=== PATIENT | female | born 1955 | race Two or more races ===

== ENCOUNTER 2018-08-13 10:12 | Day surgery (SDC) | payer OTHER ==
[2018-08-10 13:24] VITALS: BMI 38.7
[~2018-08-13 10:12] MED LIST: ACETAMINOPHEN 325 MG TABLET (FP) PO PRN; CEFAZOLIN 1 GM/D5W 1 GM/50 ML BAG IVPB ONE
[2018-08-13] MEDS ORDERED: oxyCODONE HCL 5 MG TABLET PO PRN ×2 (11:12)
[2018-08-13] MEDS ORDERED: ONDANSETRON 4 MG/2 ML VIAL IVPUSH PRN (11:12)
[2018-08-13] MEDS ORDERED: DEXAMETHASONE SOD PHOSPHATE 4 MG/1 ML VIAL ONE (11:13)
[2018-08-13] MEDS ORDERED: BUPIVACAINE HCL 0.25% 125 MG/50 ML VIAL ONE (11:13)
[2018-08-13] MEDS ORDERED: LIDOCAINE HCL 2% (20ML MULTI-DOSE VIAL) NR ONE (11:13)
[2018-08-13] MEDS ORDERED: LACTATED RINGERS SOLUTION 1,000 ML IV SCH (11:15)
[2018-08-13] MEDS ORDERED: MIDAZOLAM HCL 2 MG/2 ML SINGLE DOSE VIAL ONE ×2 (11:21→11:43)
[2018-08-13] MEDS ORDERED: PROPOFOL 20 ML ONE ×5 (11:22→12:35)
[2018-08-13] MEDS ORDERED: SUCCINYLCHOLINE CHLORIDE 200 MG/10 ML VIAL ONE (11:22)
[2018-08-13] MEDS ORDERED: LIDOCAINE HCL/PF 2% SDV 5ML VIAL ONE (11:23)
[2018-08-13] MEDS ORDERED: ceFAZolin SODIUM 1 GM VIAL ONE (11:33)
[2018-08-13] MEDS ORDERED: LIDOCAINE HCL 2% (50ML VIAL) NR ONE (11:34)
[2018-08-13] MEDS ORDERED: KETOROLAC TROMETHAMINE 30 MG/1 ML VIAL ONE (11:45)
[2018-08-13] MEDS ORDERED: BUPIVACAINE HCL/PF 0.25% (2.5MG/ML) 10 ML VIAL IJ ONE (12:37)
[2018-08-13] MEDS ORDERED: DEXAMETHASONE SOD PHOSPHATE 4 MG/1 ML VIAL IVPUSH ONE (12:37)
[2018-08-13 13:15] VITALS: TEMP 97.9
[2018-08-13 13:45] VITALS: BP 133/80; PULSE 75
--- NOTE | 2018-08-14 08:46 | OP ---
DATE OF OPERATION: 08/13/2018 PREOPERATIVE DIAGNOSIS: Hallux abducto valgus, right foot. POSTOPERATIVE DIAGNOSIS: Hallux abducto valgus, right foot. PROCEDURE: Silver bunionectomy, right foot, with medial capsulorraphy ANESTHESIA: Local with IV sedation. SURGEON: Roberto Richardson DPM INTER COM SERVICER: NONE HEMOSTASIS: Pneumatic ankle tourniquet, right ankle. DESCRIPTION OF PROCEDURE: The patient was brought to the operating room, placed on the operating table in the supine position. Pneumatic ankle tourniquet was placed on the patients right ankle. Following IV sedation, local anesthesia was obtained, utilized 13 mL of 2% Lidocaine plain. Foot was then scrubbed, prepped and draped in the usual aseptic fashion. Esmarch bandage was then utilized to exsanguinate the patients right foot, and a tourniquet was inflated. Attention was directed to the dorso- medial aspect of the 1st metatarsal head on the right foot, where a 2.5 cm linear longitudinal incision was placed. The incision was just medial to the extensor hallucis longus tendon. Incision was deepened through subcutaneous tissues using sharp and blunt dissection. Care was taken to identify and retract all vital neurovascular structures. An "L" shaped capsular incision was made, the base of the "L" being medial, at the the 1st MPJ line. The capsule was sharply dissected from the underlying bone, and the medial collateral ligament was transected. Now, attention was directed to medial aspect of the 1st metatarsal head where a medial prominence was identified and resected using sagittal saw. All dorsal, medial, and lateral prominences of metatarsal head were resected using a rongeur and smoothed with a rasp. At this time, attention was directed to the lateral aspect of the base of the proximal phalanx over the 1st digit of the right foot through the initial incision, and the adductor conjoint tendon attached to the base of the lateral proximal phalanx was transected for a lateral release. A more rectus position of the Right hallux was noticed. The incision site was copiously flushed with sterile saline. Capsulorrhaphy was performed, and capsule closed with 2-0 Vicryl, subcutaneous tissue with 4-0 Vicryl, and skin with 4-0 Prolene. Surgical site was dressed with Betadine-soaked Adaptic, 4x4 gauze, Van & Coban overwrap. Patient tolerated the procedure well, and upon deflation of the ankle tourniquet, immediate hyperemia was returned to all digits of the right foot. Capillary refill time was less than 3 seconds. Patient tolerated the procedure well and was transferred to the recovery room with all vital signs stable and neurovascular status intact to the right foot. ROBERTO RICHARDSON DPM [id number] MTDDianne
--- NOTE | 2018-08-15 23:13 | OP ---
DATE OF OPERATION: 08/13/2018 PREOPERATIVE DIAGNOSIS: Hallux abductovalgus deformity with exostosis, right foot. POSTOPERATIVE DIAGNOSIS: Hallux abductovalgus deformity with exostosis, right foot. PROCEDURE: Silver bunionectomy with medial capsulorrhaphy 1st MPJ right foot. ANESTHESIA: Local with MAC. SURGEON: Roberto Richardson DPM MANAGER ENGAGEMENT: None. HEMOSTASIS: Obtained using pneumatic ankle tourniquet, right ankle, at 250 mmHg. ESTIMATED BLOOD LOSS: Less than 0.05 mL total. DESCRIPTION OF PROCEDURE: With the patient's vital signs noted to be stable, she was brought to the operating room and placed on the OR table in the supine position. After local anesthesia was administered and obtained, an orthopedic sterile prepping of the right foot was performed. Now, the well-padded tourniquet at the right ankle was inflated to 250 mmHg. At this juncture, a 2.5-cm dorsal linear incision was made centered just proximal to the 1st MPJ of the right foot, the incision being just medial to the extensor hallucis longus tendon. The incision was carefully deepened and via sharp and blunt dissection, the skin and subcutaneous tissues were reflected away from the deeper capsular structures. At this point, an L-shaped capsular incision was made, the base of the L being medial at the 1st MPJ joint line. Now, via sharp dissection, the capsular and periosteal tissues were dissected away from the underlying bone. Now, the medial collateral ligament of the 1st MPJ was transected. At this point, the medial eminence of the 1st metatarsal head was resected using a sagittal saw. Additional fragments were removed with the assistance of a bone rongeur and small osteotome and mallet. Now an adductor release was performed. A medial capsulorrhaphy was performed. The area was flushed using copious amounts of sterile saline. Now the capsular tissues were closed using simple sutures of 2-0 Vicryl. The subcutaneous tissues were closed using simple interrupted sutures of 4-0 Vicryl. The skin was closed using a subcuticular stitch of 4-0 Prolene. Postoperative injectable consisting of 1 mL of Marcaine 0.25% plain and 1 mL of dexamethasone phosphate was placed. After postoperative compressive dressings were applied, the tourniquet was deflated and normal capillary filling time was noted instantaneously to all digits of the right foot. Wound expectancy is clean. Prognosis is good. ROBERTO RICHARDSON DPM [id number] MTDD
--- NOTE | 2018-08-17 17:11 | PATH ---
Surgical Pathology Report Patient Name: SIMON DAUGHERTY [facility]. Rec. #: [id number] /Age/Gender: 1955 (Age: 63) / F Account: [id number] Location: [facility] Taken: 08/13/2018 Received: 08/13/2018 Reported: 08/17/2018 Physicians: Michele Lozada Specimen(s) Received EXOSTECTOMY, RIGHT GREAT TOE Clinical History Bunion right foot Final Diagnosis RIGHT GREAT TOE, EXOSTECTOMY: FRAGMENTS OF FIBROCONNECTIVE TISSUE, CARTILAGINOUS TISSUE, AND BONE WITH FATTY MARROW SHOWING FOCAL DEGENERATIVE CHANGE. Electronically Signed Kierra Romero M.D. Gross Description Received in formalin labeled "exostectomy right great toe," is a 2.5 x 1.7 x 0.2 cm aggregate of multiple encarnacion-yellow, irregular portions of bone and soft tissue. The largest portion is sectioned and the specimen is entirely submitted in one cassette, following decalcification. 08/16/2018 [facility]08/16/2018
== END 2018-08-13 13:45 | disposition home or self-care (01) ==
LOC: FASU 10:12
PROVIDERS: ATTEND Podiatrist
PROC: 0QBQ0ZZ Excision of Right Toe Phalanx, Open Approach (ICD-10-PCS; principal; 2018-08-13 11:47)
DX: M20.11 Hallux valgus (acquired), right foot (principal); M89.8X7 Other specified disorders of bone, ankle and foot
CPT/HCPCS: 88304-TC; 88311-TC; 94760

== ENCOUNTER 2021-10-09 06:25 | Day surgery (SDC) | payer OTHER ==
[2021-10-04 11:39] VITALS: BMI 38.0
[2021-10-09] MEDS ORDERED: FENTANYL CITRATE/PF 50 MCG/ML VIAL ONE (07:35)
[2021-10-09] MEDS ORDERED: BUPIVACAINE LIPOSOME/PF (EXPAREL) 266 MG/20 ML VIAL ONE (07:35)
[2021-10-09] MEDS ORDERED: BUPIVACAINE HCL/PF 0.5% (5MG/ML) 10 ML VIAL ONE (07:35)
[2021-10-09] MEDS ORDERED: MIDAZOLAM HCL 2 MG/2 ML SINGLE DOSE VIAL ONE ×3 (07:35→08:00)
[2021-10-09] MEDS ORDERED: PROPOFOL 20 ML ONE ×2 (08:00)
[2021-10-09] MEDS ORDERED: TRANEXAMIC ACID 1000 MG/10 ML VIAL IVPUSH ONE (08:02)
[2021-10-09] MEDS ORDERED: CEFAZOLIN 2 GM in DEXTROSE 5%-WATER - 50 ML IVPB ONE (08:02)
[2021-10-09] MEDS ORDERED: ceFAZolin SODIUM 1 GM VIAL ONE ×2 (08:10→16:20)
[2021-10-09] MEDS ORDERED: ONDANSETRON 4 MG/2 ML VIAL ONE (08:10)
[2021-10-09] MEDS ORDERED: ONDANSETRON 4 MG/2 ML VIAL IVPUSH PRN ×2 (10:38→10:53)
[2021-10-09] MEDS ORDERED: oxyCODONE HCL 5 MG TABLET PO PRN (10:38)
[2021-10-09] MEDS ORDERED: MAGNESIUM HYDROX 2400MG/30ML ORAL SUSPENSION 30 ML CUP PO PRN (10:53)
[2021-10-09] MEDS ORDERED: MAG HYDROX/AL HYDROX/SIMETH 30 ML UNIT-DOSE CUP PO PRN (10:53)
[2021-10-09] MEDS ORDERED: LACTATED RINGERS SOLUTION 1,000 ML IV SCH (11:00)
[2021-10-09] MEDS: ACETAMINOPHEN 500 MG TABLET (FP) PO SCH ×2 (14:24→17:54)
[2021-10-09] MEDS: oxyCODONE HCL 5 MG TABLET PO PRN ×3 (14:24→21:19)
[2021-10-09] MEDS ORDERED: DEXTROSE 5%-WATER - 50 ML IVPB ONE (16:20)
[2021-10-09] MEDS: CEFAZOLIN 1 GM in DEXTROSE 5%-WATER - 50 ML IVPB SCH (16:31)
[2021-10-09 20:11] VITALS: RESP 18
[2021-10-09] MEDS: GABAPENTIN 300 MG CAPSULE PO SCH (21:19)
[2021-10-09] MEDS: ASPIRIN COATED 81 MG TABLET.EC PO SCH (21:19)
[2021-10-09] MEDS: SENNOSIDES/DOCUSATE COMBO (SENNA PLUS) TABLET (UD) PO SCH (21:20)
[2021-10-10] MEDS ORDERED: ceFAZolin SODIUM 1 GM VIAL ONE (00:16)
[2021-10-10] MEDS ORDERED: DEXTROSE 5%-WATER - 50 ML IVPB ONE (00:16)
[2021-10-10] MEDS: CEFAZOLIN 1 GM in DEXTROSE 5%-WATER - 50 ML IVPB SCH (00:20)
[2021-10-10] MEDS: ACETAMINOPHEN 500 MG TABLET (FP) PO SCH ×2 (00:20→06:12)
[2021-10-10] MEDS: oxyCODONE HCL 5 MG TABLET PO PRN ×2 (06:13→09:20)
[2021-10-10 06:35] VITALS: BP 123/63; PULSE 90; TEMP 98.1
[2021-10-10 07:51] LABS: HEMATOCRIT 34.3 % (32.4-45.2); HEMOGLOBIN 12.2 G/dL (10.7-15.3); MCH 30.2 pg (25.7-33.7); MCHC 35.6 g/dl (32.0-36.0); MEAN CELL VOLUME 84.8 fl (80-96); MEAN PLT VOLUME 8.9 fl (7.5-11.1); PLATELET COUNT 280.4 10^3/uL (134-434); RBC 4.04 10^6/uL (3.60-5.2); RDW 14.7 % (11.6-15.6); WHITE BLOOD COUNT 11.7 10^3/uL (4.0-10.8)
[2021-10-10 08:06] LABS: CALCIUM 8.7 mg/dl (8.5-10); CREATININE 0.7 mg/dl (0.55-1.3)
[2021-10-10] MEDS: GABAPENTIN 300 MG CAPSULE PO SCH (09:20)
[2021-10-10] MEDS: SENNOSIDES/DOCUSATE COMBO (SENNA PLUS) TABLET (UD) PO SCH (09:20)
[2021-10-10] MEDS: ASPIRIN COATED 81 MG TABLET.EC PO SCH (09:20)
[2021-10-10] MEDS ORDERED: PANTOPRAZOLE 40 MG TABLET PO SCH (10:00)
[2021-10-10] MEDS ORDERED: CELECOXIB 200 MG CAPSULE PO SCH (10:00)
[2021-10-10] MEDS ORDERED: ACETAMINOPHEN 500 MG TABLET (FP) PO SCH (14:30)
== END 2021-10-10 14:15 | disposition home or self-care (01) ==
LOC: FASUSAT 06:25 → FM/S 12:02 → FASUSAT 10-10 14:15
PROVIDERS: ATTEND Orthopaedic Surgery
PROC: 0SRD0J9 Replacement of Left Knee Joint with Synthetic Substitute, Cemented, Open Approach (ICD-10-PCS; principal; 2021-10-09 08:30)
DX: M17.12 Unilateral primary osteoarthritis, left knee (principal)
CPT/HCPCS: 27447; C1776; 36415; 73560-TC-LT-FY; 80048; 85027; 88305-TC; 88311-TC; 94760; 97010-GP; 97116-GP; 97162-GP

== ENCOUNTER 2022-07-02 06:07 | Day surgery (SDC) | payer OTHER ==
[2022-07-02 06:58] VITALS: BMI 39.1
[2022-07-02] MEDS ORDERED: DEXAMETHASONE SOD PHOSPHATE/PF 10 MG/ML SDV ONE (07:01)
[2022-07-02] MEDS ORDERED: MIDAZOLAM HCL 2 MG/2 ML SINGLE DOSE VIAL ONE (07:01)
[2022-07-02] MEDS ORDERED: BUPIVACAINE HCL/PF 0.5% (5MG/ML) 10 ML VIAL ONE (07:01)
[2022-07-02] MEDS ORDERED: BUPIVACAINE HCL/PF 0.5% (5 MG/ML) 30 ML VIAL IJ ONE (07:01)
[2022-07-02] MEDS ORDERED: ACETAMINOPHEN INJECTION 100 ML IVPB ONE (07:01)
[2022-07-02] MEDS ORDERED: DEXAMETHASONE SOD PHOSPHATE 4 MG/1 ML VIAL ONE (07:17)
[2022-07-02] MEDS ORDERED: KETOROLAC TROMETHAMINE 30 MG/1 ML VIAL ONE (07:17)
[2022-07-02] MEDS ORDERED: ONDANSETRON 4 MG/2 ML VIAL ONE (07:17)
[2022-07-02] MEDS ORDERED: TRANEXAMIC ACID 1000 MG/10 ML VIAL ONE (07:17)
[2022-07-02] MEDS ORDERED: PROPOFOL 40 ML ONE (07:17)
[2022-07-02] MEDS ORDERED: ceFAZolin SODIUM 1 GM VIAL ONE (07:17)
[2022-07-02] MEDS ORDERED: ONDANSETRON 4 MG/2 ML VIAL IVPUSH PRN ×2 (07:32→11:12)
[2022-07-02] MEDS ORDERED: ACETAMINOPHEN 325 MG TABLET (FP) PO PRN (07:32)
[2022-07-02] MEDS ORDERED: oxyCODONE HCL 5 MG TABLET PO PRN ×2 (07:32)
[2022-07-02] MEDS ORDERED: BUPIVACAINE LIPOSOME/PF (EXPAREL) 266 MG/20 ML VIAL ONE (07:39)
[2022-07-02] MEDS ORDERED: LACTATED RINGERS SOLUTION 1,000 ML IV SCH ×2 (07:45→11:15)
[2022-07-02] MEDS ORDERED: KETAMINE HCL 200 MG/20 ML VIAL ONE (07:55)
[2022-07-02] MEDS ORDERED: PROPOFOL 20 ML ONE ×4 (08:24→10:18)
[2022-07-02] MEDS ORDERED: MAG HYDROX/AL HYDROX/SIMETH 30 ML UNIT-DOSE CUP PO PRN (11:12)
[2022-07-02] MEDS ORDERED: MAGNESIUM HYDROX 2400MG/30ML ORAL SUSPENSION 30 ML CUP PO PRN (11:12)
[2022-07-02] MEDS ORDERED: ACETAMINOPHEN 1000 MG/100 ML BAG IVPB ONE (15:00)
[2022-07-02] MEDS: CEFAZOLIN SODIUM 2 GM in DEXTROSE 5%-WATER 100 ML IVPB SCH (17:05)
[2022-07-02 17:36] VITALS: RESP 18
[2022-07-02] MEDS: ASPIRIN COATED 81 MG TABLET.EC PO SCH (21:31)
[2022-07-02] MEDS: SENNOSIDES/DOCUSATE COMBO (SENNA PLUS) TABLET (UD) PO SCH (21:31)
[2022-07-02] MEDS: ACETAMINOPHEN 500 MG TABLET (FP) PO SCH (23:15)
[2022-07-03] MEDS: CEFAZOLIN SODIUM 2 GM in DEXTROSE 5%-WATER 100 ML IVPB SCH (01:00)
[2022-07-03 08:23] LABS: HEMATOCRIT 39.2 % (32.4-45.2); HEMOGLOBIN 12.8 G/dL (10.7-15.3); MCH 28.2 pg (25.7-33.7); MCHC 32.7 g/dl (32.0-36.0); MEAN CELL VOLUME 86.3 fl (80-96); MEAN PLT VOLUME 9.2 fl (7.5-11.1); PLATELET COUNT 322.7 10^3/uL (134-434); RBC 4.54 10^6/uL (3.60-5.2); RDW 15.2 % (11.6-15.6)
[2022-07-03] MEDS: ACETAMINOPHEN 500 MG TABLET (FP) PO SCH ×2 (08:29→16:11)
[2022-07-03 08:34] LABS: CALCIUM 9.4 mg/dl (8.5-10); CREATININE 0.7 mg/dl (0.55-1.3)
[2022-07-03] MEDS ORDERED: amLODIPine BESYLATE 5 MG TABLET (FP) PO SCH (10:00)
[2022-07-03] MEDS ORDERED: PANTOPRAZOLE 40 MG TABLET PO SCH (10:00)
[2022-07-03] MEDS ORDERED: CELECOXIB 200 MG CAPSULE PO SCH (10:00)
[2022-07-03] MEDS: SENNOSIDES/DOCUSATE COMBO (SENNA PLUS) TABLET (UD) PO SCH (11:31)
[2022-07-03] MEDS: ASPIRIN COATED 81 MG TABLET.EC PO SCH (11:31)
[2022-07-03] MEDS: DEXAMETHASONE SOD PHOSPHATE 4 MG/1 ML VIAL IVPUSH ONE ×2 (11:32→14:01)
[2022-07-03] MEDS ORDERED: DEXAMETHASONE 4 MG TABLET (FP) PO ONE (14:00)
[2022-07-03 14:05] VITALS: BP 104/50; PULSE 72; TEMP 98
== END 2022-07-03 18:04 | disposition home or self-care (01) ==
LOC: FASUSAT 06:07 → FM/S 12:41 → FASUSAT 07-03 18:04
PROVIDERS: ATTEND Orthopaedic Surgery
PROC: 0SRC0J9 Replacement of Right Knee Joint with Synthetic Substitute, Cemented, Open Approach (ICD-10-PCS; principal; 2022-07-02 08:39)
DX: M17.11 Unilateral primary osteoarthritis, right knee (principal)
CPT/HCPCS: 27447; C1776; 36415; 73560-TC-RT-FY; 80048; 85027; 94760; 97010-GP; 97116-GP; 97162-GP; C1889